=== PATIENT | male | born 1985 | race Caucasian/White ===

== ENCOUNTER 2019-01-11 17:18 | Inpatient (IN) ==
[2019-01-11] MEDS ORDERED: HYDROmorphone 2 MG/1 ML VIAL IV STA (19:13)
[2019-01-11] MEDS ORDERED: CEFTAROLINE 600 MG in SODIUM CHLORIDE 0.9% 100 ML IV STA (19:34)
[2019-01-11] MEDS ORDERED: LACTATED RINGERS 1,000 ML IV ONE (19:34)
[2019-01-11 19:36] LABS: Basophils % 0.3 % (0.0-0.8); Eosinophils # 0.1 10*3/uL (0.0-0.87); Hematocrit 42.4 VOL% (42.0-52.0); Hemoglobin 14.2 GM/DL (14.0-18.0); Immature Granulocytes % 1.3 %; Immature Granulocytes Absolute 0.18 #; Lymphocytes # 3.1 10*3/uL (1.4-4.0); Lymphocytes % 22.7 % (21.2-54.2); Mean Corpuscular HGB Conc 33.5 GM/DL (32-36); Mean Corpuscular Hemoglobin 31 PG (27-34); Mean Corpuscular Volume 91.4 FL (87-102); Mean Platelet Volume 9.9 FL (9.6-12.0); Monocytes # 1.4 10*3/uL (0.11-0.8); Neutrophils # 8.8 10*3/uL (1.4-7.4); Neutrophils % 64.7 % (38.7-73.9); Platelet Count 224 T/CUMM (130-400); Red Blood Count 4.64 MC/CUMM (3.8-5.5); Red Cell Distribution Width 12.7 % (9.3-17.3); White Blood Count 13.7 T/CUMM (4-12)
[2019-01-11 19:59] LABS: Alanine Aminotransferase 49 U/L (16-61); Albumin 3.5 G/DL (3.4-5.0); Alkaline Phosphatase 75 U/L (45-117); Aspartate Amino Transferase 15 U/L (0-37); Bilirubin,Total < 0.39 MG/DL (0.2-1.0); Blood Urea Nitrogen 11 MG/DL (7-18); Calcium 8.5 MG/DL (8.5-10.1); Glucose 85 MG/DL (74-106); Osmolality,Calculated 276.4 MOS/KG (273-304); Potassium 3.7 MMOL/L (3.5-5.1); Sodium 140 MMOL/L (136-145); Total Protein 7.1 G/DL (6.4-8.3)
[2019-01-11] MEDS ORDERED: ACETAMINOPHEN 325 MG TABLET PO PRN (20:27)
[2019-01-11] MEDS ORDERED: ONDANSETRON 4 MG/2 ML VIAL IV PRN (20:27)
[2019-01-11] MEDS: DEXTROSE 5% NACL 0.45% 1,000 ML IV SCH (22:08)
[2019-01-11] MEDS: HYDROmorphone 2 MG/1 ML VIAL IV PRN (23:29)
[2019-01-12] MEDS: HYDROmorphone 2 MG/1 ML VIAL IV PRN ×6 (04:49→15:13)
[2019-01-12] MEDS: DEXTROSE 5% NACL 0.45% 1,000 ML IV SCH ×3 (04:51→22:59)
[2019-01-12 05:15] LABS: Basophils % 0.3 % (0.0-0.8); Eosinophils # 0.2 10*3/uL (0.0-0.87); Eosinophils % 1.2 % (0.00-10.9); Hematocrit 40.7 VOL% (42.0-52.0); Hemoglobin 13.2 GM/DL (14.0-18.0); Immature Granulocytes % 1.4 %; Immature Granulocytes Absolute 0.17 #; Lymphocytes # 2.7 10*3/uL (1.4-4.0); Lymphocytes % 21.6 % (21.2-54.2); Mean Corpuscular HGB Conc 32.4 GM/DL (32-36); Mean Corpuscular Hemoglobin 31 PG (27-34); Mean Corpuscular Volume 94.2 FL (87-102); Mean Platelet Volume 10.3 FL (9.6-12.0); Monocytes # 1.3 10*3/uL (0.11-0.8); Monocytes % 10.5 % (1.7-12.7); Neutrophils # 8.2 10*3/uL (1.4-7.4); Platelet Count 194 T/CUMM (130-400); Red Blood Count 4.32 MC/CUMM (3.8-5.5); Red Cell Distribution Width 12.7 % (9.3-17.3); White Blood Count 12.5 T/CUMM (4-12)
[2019-01-12 05:47] LABS: Calcium 8.1 MG/DL (8.5-10.1); Osmolality,Calculated 279.3 MOS/KG (273-304); Potassium 3.4 MMOL/L (3.5-5.1)
[2019-01-12] MEDS ORDERED: CLINDAMYCIN INJ 900 MG in PREMIX 1 EACH IV ONE (07:26)
[2019-01-12] MEDS: POTASSIUM CHLORIDE RIDER 10 MEQ in PREMIX 1 EACH IV SCH ×8 (07:28→17:09)
[2019-01-12] MEDS: NEOMYCIN/POLYMYXIN/HC OTIC SOLN 10 ML BOTTLE BOTH EARS SCH ×3 (08:31→20:51)
[2019-01-12] MEDS: PANTOPRAZOLE 40 MG TABLET PO SCH (08:32)
[2019-01-12] MEDS: ENOXAPARIN 40 MG/0.4 ML SYRINGE SUBCUT SCH (08:33)
[2019-01-12] MEDS ORDERED: CEFTAROLINE 600 MG in SODIUM CHLORIDE 0.9% 100 ML IV SCH (09:00)
[2019-01-12] MEDS ORDERED: fentaNYL 100 MCG/2 ML VIAL ONE (11:26)
[2019-01-12] MEDS ORDERED: SEVOFLURANE 1 UNIT/15 MINUTE INH ONE (11:27)
[2019-01-12] MEDS ORDERED: PROPOFOL 200 MG/20 ML VIAL IV ONE (11:27)
[2019-01-12] MEDS ORDERED: MIDAZOLAM 2 MG/2 ML VIAL ONE (11:27)
[2019-01-12] MEDS ORDERED: HYDROmorphone 2 MG/1 ML VIAL ONE (11:28)
[2019-01-12] MEDS ORDERED: ONDANSETRON 4 MG/2 ML VIAL ONE (11:28)
[2019-01-12] MEDS ORDERED: ONDANSETRON 4 MG/2 ML VIAL IV PRN (11:29)
[2019-01-12] MEDS: SULFAMETHOX/TRIMETHOPRIM 800-160 MG TABLET PO SCH ×2 (12:19→20:50)
[2019-01-12] MEDS ORDERED: KETOROLAC 30 MG/1 ML VIAL IV ONE (16:20)
[2019-01-12] MEDS: ASPIRIN EC 81 MG TABLET PO SCH (17:18)
[2019-01-12] MEDS: POLYETHYLENE GLYCOL POWDER 17 GM PACK PO SCH (17:18)
[2019-01-12] MEDS: KETOROLAC 15 MG/1 ML VIAL IV SCH ×2 (17:19→22:52)
[2019-01-12] MEDS: MEPERIDINE 50 MG TABLET PO PRN (19:45)
[2019-01-12] MEDS: TEMAZEPAM 15 MG CAPSULE PO SCH ×2 (20:51→20:54)
[2019-01-13] MEDS: MEPERIDINE 50 MG TABLET PO PRN ×2 (00:22→15:40)
[2019-01-13] MEDS: KETOROLAC 15 MG/1 ML VIAL IV SCH ×4 (04:44→22:56)
[2019-01-13] MEDS: DEXTROSE 5% NACL 0.45% 1,000 ML IV SCH ×2 (07:03→17:01)
[2019-01-13] MEDS: HYDROmorphone 2 MG/1 ML VIAL IV PRN (08:35)
[2019-01-13] MEDS: ENOXAPARIN 40 MG/0.4 ML SYRINGE SUBCUT SCH (08:40)
[2019-01-13] MEDS: SULFAMETHOX/TRIMETHOPRIM 800-160 MG TABLET PO SCH ×2 (08:41→20:55)
[2019-01-13] MEDS: ASPIRIN EC 81 MG TABLET PO SCH (08:41)
[2019-01-13] MEDS: PANTOPRAZOLE 40 MG TABLET PO SCH (08:41)
[2019-01-13] MEDS: POLYETHYLENE GLYCOL POWDER 17 GM PACK PO SCH (08:41)
[2019-01-13] MEDS: NEOMYCIN/POLYMYXIN/HC OTIC SOLN 10 ML BOTTLE BOTH EARS SCH ×3 (08:41→20:55)
[2019-01-13] MEDS: CLINDAMYCIN INJ 900 MG in PREMIX 1 EACH IV SCH ×3 (10:27→20:56)
[2019-01-13] MEDS: TEMAZEPAM 15 MG CAPSULE PO SCH (20:55)
[2019-01-14] MEDS: DEXTROSE 5% NACL 0.45% 1,000 ML IV SCH ×2 (03:57→03:58)
[2019-01-14] MEDS: CLINDAMYCIN INJ 900 MG in PREMIX 1 EACH IV SCH ×2 (03:59→09:13)
[2019-01-14] MEDS: KETOROLAC 15 MG/1 ML VIAL IV SCH ×2 (05:12→14:13)
[2019-01-14 08:32] VITALS: BP 104/47
[2019-01-14] MEDS: ENOXAPARIN 40 MG/0.4 ML SYRINGE SUBCUT SCH (08:57)
[2019-01-14] MEDS: ASPIRIN EC 81 MG TABLET PO SCH (08:57)
[2019-01-14] MEDS: POLYETHYLENE GLYCOL POWDER 17 GM PACK PO SCH (08:58)
[2019-01-14] MEDS: NEOMYCIN/POLYMYXIN/HC OTIC SOLN 10 ML BOTTLE BOTH EARS SCH (08:58)
[2019-01-14] MEDS: PANTOPRAZOLE 40 MG TABLET PO SCH (08:58)
[2019-01-14] MEDS: SULFAMETHOX/TRIMETHOPRIM 800-160 MG TABLET PO SCH (08:58)
[2019-01-14] MEDS: MEPERIDINE 50 MG TABLET PO PRN (09:00)
[2019-01-14] MEDS: HYDROmorphone 2 MG/1 ML VIAL IV PRN (09:12)
== END 2019-01-14 11:30 | disposition home or self-care (01) | DRG 581 ==
LOC: N.ED 17:18 → N.EDINP 20:27 → N.3E 21:28
PROVIDERS: ADMIT Surgery; ATTEND Surgery